=== PATIENT | female | born 2000 | race Caucasian/White ===

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

== ENCOUNTER → 2022-03-15 | Outpatient (CLI) | payer OTHER ==
--- NOTE | 2022-03-15 15:00 | US ---
EXAMINATION TYPE: Transabdominal DATE OF EXAM: 03/15/2022 2:34 PM COMPARISON: NONE CLINICAL HISTORY: Z36.89 ENCOUNTER FOR OTHER SPECIFIED SCR. Confirm dates EXAM PERFORMED: Transabdominal (TA) EXAM MEASUREMENTS: GESTATIONAL AGE / DATING Physician Established: not yet established Dates by LMP: (9 weeks/5 days) EDC: 10/13/22 Dates by First Scan: No previous this is first scan Dates by Current Scan for: (10 weeks/1 days) EDC: 10/10/22 MATERNAL ANATOMY Uterus: 8.8 x 8.5 x 8.5cm Right Ovary: 3.4 x 1.8 x 1.8cm Left Ovary: 2.1 x 1.6 x 1.6cm Post CDS / Adnexa: wnl Presence of free fluid: no Presence of corpus luteal cyst: yes, complex area right ovary = 1.6 x 1.5 x 1.5cm Presence of subchorionic bleed: no GESTATION / SURVEY CRL: 3.3cm (10 weeks/1 day) Yolk Sac (normal less than 6mm): 0.4cm Heart Rate: 167 bpm Rhythm: Normal IUP: Viable IUP Date of LMP: 01/06/22 Beta HcG (if available): Not available at this time IMPRESSION: Single live intrauterine gestation with estimated gestational age of 10 weeks 1 day with estimated du e date of 10/10/2022.
== END | disposition home or self-care (01) ==
LOC: RADUSWWP 14:17
PROVIDERS: ATTEND Obstetrics & Gynecology
DX: Z36.89 Encounter for other specified antenatal screening (principal); Z3A.10 10 weeks gestation of pregnancy
CPT/HCPCS: 76801

== ENCOUNTER 2022-10-08 06:00 | Inpatient (IN) | payer OTHER ==
--- NOTE | 2022-10-07 10:08 | P.HPOB ---
History of Present Illness H&P Date: 10/07/22 Chief Complaint: Induction of labor This is a 22 y.o. female, 2, para 0, with an estimated date of confinement of 10/13/2022, estimated gestational age of 39-2/7 weeks, who presents for induction of labor due to marginal cord insertion. She has been feeling irregular contractions and pressure. surveillance has been reassuring. Patient did have COVID in May 2022 and was given Paxlovid at that time. She was also started on baby aspirin at the time. labs: Hepatitis B surface antigen-neg RPR-NR Rubella-immune Blood type-A+ Antibody screen-neg HIV-NR Hemoglobin-14.3 Toxoplasma-neg Hepatits C antibody-neg [id number] GC/Chlamydia/Trich-neg 1 hr. GTT-108 GBS-neg OB Hx: . History of 1 termination. 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 Works at a [employer]. Review of Systems Constitutional: Denies chills, Denies fever Eyes: denies blurred vision, denies pain Ears, nose, mouth and throat: Denies headache, Denies sore throat Cardiovascular: Denies chest pain, Denies shortness of breath Gastrointestinal: Reports abdominal pain (irregular contractions) Genitourinary: Reports pelvic pain, Reports Musculoskeletal: Reports low back pain Integumentary: Denies pruritus, Denies rash Neurological: Denies numbness, Denies weakness Psychiatric: Denies anxiety, Denies depression Past Medical History Past Medical History: No Reported History History of Any Multi-Drug Resistant Organisms: None Reported Past Surgical History: No Surgical Hx Reported Additional Past Surgical History / Comment(s): root canal Past Psychological History: No Psychological Hx Reported Smoking Status: Current every day smoker Past Alcohol Use History: None Reported Past Drug Use History: Marijuana (History earlier in ) - Past Family History Father Family Medical History: Hypertension Brother(s) Additional Family Medical History / Comment(s): hearing impaired Medications and Allergies Home Medications Medication Instructions Recorded Confirmed Type Aspirin EC [Ecotrin Low Dose] 81 mg PO DAILY 10/07/22 10/07/22 History Vit No.179/Iron/Folic 1 each PO 10/07/22 History [ Tablet] Allergies Allergy/AdvReac Type Severity Reaction Status Date / Time No Known Allergies Allergy Verified 07/17/22 22:24 Exam Osteopathic Statement: *. No significant issues noted on an osteopathic structural exam other than those noted in the History and Physical/Consult. HEENT: within normal limits Heart: regular rate and rhythm Lungs: clear to auscultation bilaterally Abdomen: soft, non-tender, Cervix: 2.5 cm/70%/-2 heart tones: 140's by doppler Extremities: neg. Skylar's Assessment and Plan (1) 39 weeks gestation of Status: Acute Code(s): Z3A.39 - 39 WEEKS GESTATION OF SNOMED Code(s): 60922814 (2) Marginal insertion of umbilical cord affecting management of mother in third trimester Status: Acute Code(s): O43.193 - OTHER MALFORMATION OF PLACENTA, THIRD TRIMESTER SNOMED Code(s): 22798159 Plan: Proceed with oxytocin induction of labor. Expectant management. Epidural anesthesia if desired.
[2022-10-08] MEDS ORDERED: CARBOPROST TROMETHAMINE 250 MCG/ML 1 ML AMP IM PRN (06:12)
[2022-10-08] MEDS ORDERED: TRANEXAMIC ACID IN NACL,ISO-OS 1,000 MG in EMPTY BAG 1 BAG IV PRN (06:12)
[2022-10-08] MEDS ORDERED: OXYTOCIN 30 UNITS/500 ML NS 30 UNIT in SALINE 1 500ML.BAG IV SCH (06:12)
[2022-10-08] MEDS ORDERED: LIDOCAINE 0.5% (PF) 5 MG/ML (50 ML SDV) SQ PRN (06:12)
[2022-10-08] MEDS ORDERED: TERBUTALINE 1 MG/ML VIAL SQ PRN (06:12)
[2022-10-08] MEDS ORDERED: LIDOCAINE 1% (10MG/ML) FOR IV START INTRADERMA PRN (06:12)
[2022-10-08] MEDS ORDERED: miSOPROStoL 200 MCG TAB PO PRN (06:12)
[2022-10-08] MEDS ORDERED: OXYTOCIN 10 UNIT/ML 1 ML VIAL IM PRN (06:12)
[2022-10-08] MEDS ORDERED: METHYLERGONOVINE 0.2 MG/ML 1 ML AMP IM PRN (06:12)
[2022-10-08 06:20] VITALS: RESP 16
[2022-10-08] MEDS: LACTATED RINGERS 1,000 ML IV SCH ×3 (06:43→15:07)
[2022-10-08 06:53] LABS: Basophils % (A) 0 %; Eosinophils # (A) 0.2 k/uL (0-0.7); Eosinophils % (A) 2 %; HCT 36.5 % (34.0-46.0); HGB 12.2 gm/dL (11.4-16.0); Lymphocytes # (A) 1.8 k/uL (1.0-4.8); Lymphocytes % (A) 14 %; MCH 26.4 pg (25.0-35.0); MCHC 33.3 g/dL (31.0-37.0); MCV 79.3 fL (80.0-100.0); Mean Platelet Volume 8.7; Monocytes # (A) 0.7 k/uL (0-1.0); Monocytes % (A) 6 %; Neutrophils # (A) 10.1 k/uL (1.3-7.7); Neutrophils % (A) 77 %; Platelet Count 259 k/uL (150-450); RBC 4.61 m/uL (3.80-5.40); RDW 15.8 % (11.5-15.5); WBC 13.2 k/uL (4.0-11.0)
[2022-10-08 08:01] LABS: Amphetamine Screen,Urine Not Detected (NotDetected); Barbiturate Screen,Urine Not Detected (NotDetected); Benzodiazepines Screen,Urine Not Detected (NotDetected); Cocaine Screen,Urine Not Detected (NotDetected); Methadone Screen, Urine Not Detected (NotDetected); Opiate Screen,Urine Not Detected (NotDetected); Oxycodone Screen, Urine Not Detected (NotDetected); Phencyclidine Screen,Urine Not Detected (NotDetected); Tricyclic Antidepressant,Urine Not Detected (NotDetected); Urn Cannabinoid Scrn Not Detected (NotDetected)
[2022-10-08] MEDS ORDERED: SODIUM CHLORIDE 0.9% 100 ML BAG ONE (13:04)
[2022-10-08] MEDS ORDERED: ROPIVACAINE 5 MG/ML 20 ML AMPULE ONE (13:04)
[2022-10-08] MEDS ORDERED: fentaNYL (PF) 50 MCG/ML 5 ML AMP ONE (13:04)
[2022-10-08] MEDS ORDERED: ROPIVACAINE 225 MG, fentaNYL (PF). 450 MCG in SODIUM CHLORIDE 0.9% 171 ML EPIDURAL ONE (13:54)
--- NOTE | 2022-10-08 18:39 | P.PROBDLV ---
Vaginal Delivery Note - . Vaginal Delivery Note: The patient underwent oxytocin induction of labor with artificial rupture membranes with clear fluid noted. She did receive nitrous oxide for a short while and then did get an epidural. She progressed to complete dilation. She began pushing. Infant's head came to a crown. With one further push, the 's head delivered across the perineum followed by the anterior shoulder. Nose and mouth were bulb suctioned at the perineum. With one remaining push, the remainder the easily delivered and was placed on mother's abdomen. Once the cord finish pulsating, cord was clamped and cut and was taken to warmer for evaluation. A viable female was noted with scores of 9 at 1 minute and 9 at 5 minutes and infant weight of 8 lbs. 1 oz. Placenta delivered shortly thereafter, intact, with a three-vessel cord with a marginal cord insertion. Questionable circumvallate placenta was also noted. Uterus initially contracted fairly well after oxytocin was given and uterine massage was carried out. Inspection of the perineum revealed a first-degree perineal laceration and a right periurethral laceration. These areas were anesthetized with 1% lidocaine and then sutured with 3-0 Vicryl suture in a running locked fashion. Uterus did become boggy and several clots were removed. A gloved hand was placed within the uterine cavity and several pieces of decidua-like tissue were removed along with blood clot but no further tissue was obtained. Oxytocin was opened up and uterus did firm again. After removing clots several times, patient was given 1 dose of Methergine 0.2 mg IM. Uterus again did firm after removing clots. Estimated blood loss at this time is approximately 300 mL's. Both mother and are in stable condition.
[2022-10-08] MEDS ORDERED: diphenhydrAMINE 50 MG/ML 1 ML VIAL IVP PRN ×2 (18:46)
[2022-10-08] MEDS ORDERED: BENZOCAINE/MENTHOL SPRAY 1 GM/SPRAY AEROSOL TOPICAL PRN (18:46)
[2022-10-08] MEDS ORDERED: HYDROCORTISONE 2.5% RECTAL CREAM 30 GM TUBE RECTAL PRN (18:46)
[2022-10-08] MEDS ORDERED: SIMETHICONE 80 MG CHEWABLE PO PRN (18:46)
[2022-10-08] MEDS ORDERED: diphenhydrAMINE 50 MG CAP PO PRN (18:46)
[2022-10-08] MEDS ORDERED: ZOLPIDEM 5 MG TAB PO PRN (18:46)
[2022-10-08] MEDS ORDERED: LANOLIN CREAM 5 GM TUBE TOPICAL PRN (18:46)
[2022-10-08] MEDS ORDERED: diphenhydrAMINE 25 MG CAP PO PRN (18:46)
[2022-10-08] MEDS: SENNOSIDES-DOCUSATE SODIUM 1 EACH TAB PO SCH (19:18)
[2022-10-08] MEDS: IBUPROFEN 600 MG TAB PO PRN (19:18)
[2022-10-09 07:39] LABS: Basophils % (A) 0 %; Eosinophils # (A) 0.2 k/uL (0-0.7); Eosinophils % (A) 2 %; HCT 30.4 % (34.0-46.0); Lymphocytes # (A) 1.6 k/uL (1.0-4.8); Lymphocytes % (A) 19 %; MCH 26.5 pg (25.0-35.0); MCHC 32.8 g/dL (31.0-37.0); MCV 80.6 fL (80.0-100.0); Mean Platelet Volume 8.8; Monocytes # (A) 0.6 k/uL (0-1.0); Monocytes % (A) 7 %; Neutrophils % (A) 70 %; Platelet Count 216 k/uL (150-450); RBC 3.77 m/uL (3.80-5.40); RDW 15.8 % (11.5-15.5); WBC 8.5 k/uL (4.0-11.0)
--- NOTE | 2022-10-09 08:46 | P.DS ---
Providers Date of admission: 10/08/22 06:03 Expected date of discharge: 10/09/22 Attending physician: Bita Bo Primary care physician: Stated None - Discharge Diagnosis(es) (1) 39 weeks gestation of Current Visit: No Status: Acute (2) Marginal insertion of umbilical cord affecting management of mother in third trimester Current Visit: No Status: Acute Hospital Course: This is a 22-year-old female 2 para 0 at 39-2/7 weeks who presented for induction of labor. She underwent oxytocin induction of labor and delivered vaginally a viable female on 10/08/2022 with scores of 9 at 1 minute and 9 at 5 minutes and infant weight of 8 lbs. 1 oz. Her course has been uncomplicated. Lochia has been decreasing. Her pain was well controlled with ibuprofen and Tylenol. She is breast-feeding. Vital signs are stable. Abdomen is soft with fundus firm and nontender. Extremities show negative Homans. Impression is status post vaginal delivery day #1. Plan is to discharge home today. Routine instructions are given. Rohan rocha will be given a prescription for ibuprofen. She is advised to follow up in the office in 6 weeks for check. She is to call the office if she has any further questions or concerns prior to her appointment. She does state that she has a breast pump at home. Procedures: Oxytocin induction of labor Spontaneous vaginal delivery of a viable female infant on 10/08/2022 Patient Condition at Discharge: Stable Plan - Discharge Summary New Discharge Prescriptions: New Ibuprofen [Motrin] 600 mg PO Q6HR PRN #60 tab PRN Reason: Mild Pain (Scale 1 To 3) Continue Vit No.179/Iron/Folic [ Tablet] 1 each PO Discontinued Aspirin EC [Ecotrin Low Dose] 81 mg PO DAILY Discharge Medication List Vit No.179/Iron/Folic [ Tablet] 1 each PO 10/07/22 [History] Ibuprofen [Motrin] 600 mg PO Q6HR PRN #60 tab 10/09/22 [Rx] Follow up Appointment(s)/Referral(s): Bita Bo DO [Doctor of Osteopathic Medicine] - 6 Weeks Activity/Diet/Wound Care/Special Instructions: Instructions 1. Do not begin any exercise program for 3 weeks. 2. Do not resume sexual relations for 3 weeks or longer if uncomfortable. 3. You may take tub baths or showers at any time. 4. You may use tampons if desired after 3 weeks. 5. Keep the area of episiotomy (stitches) clean and dry. 6. If you are not nursing, wear a good fitting, supportive bra during the day and limit fluid intake for at least 1 week to prevent breast engorgement. 7. Call the office, [phone], within the next week to make appointment for your 6 week checkup if it has not already been made. 8. Report any of the following occurrences to the doctor promptly: a. Heavy, excessive bleeding b. Chills, fever c. Burning or frequency of urination d. Pain or redness and breasts if nursing e. Increasing pain or swelling in episiotomy (stitches). In addition to the above instructions, the following additional should be followed: 1. No heavy lifting or straining (exercising) until after 6 week checkup. 2. Keep abdominal incision clean and dry: You may wear a dressing if more comfortable. 3. Make office appointment for 10 days after going home or as instructed by her doctor. Discharge Disposition: HOME SELF-CARE
[2022-10-09] MEDS: IBUPROFEN 600 MG TAB PO PRN (08:51)
[2022-10-09] MEDS: SENNOSIDES-DOCUSATE SODIUM 1 EACH TAB PO SCH (08:51)
[2022-10-09 15:28] VITALS: BP 108/62; PULSE 99; TEMP 98.1
== END 2022-10-09 19:16 | disposition home or self-care (01) | DRG 560 ==
LOC: 4FBP 06:03
PROVIDERS: ADMIT Obstetrics & Gynecology; ATTEND Obstetrics & Gynecology
PROC: 0HQ9XZZ Repair Perineum Skin, External Approach (ICD-10-PCS; principal; 2022-10-08)
PROC: 10E0XZZ Delivery of Products of Conception, External Approach (ICD-10-PCS; principal; 2022-10-08)
PROC: 10907ZC Drainage of Amniotic Fluid, Therapeutic from Products of Conception, Via Natural or Artificial Opening (ICD-10-PCS; 2022-10-08)
PROC: 3E033VJ Introduction of Other Hormone into Peripheral Vein, Percutaneous Approach (ICD-10-PCS; 2022-10-08)
DX: O43.193 Other malformation of placenta, third trimester (principal); F17.200 Nicotine dependence, unspecified, uncomplicated; O70.0 First degree perineal laceration during delivery; O71.82 Other specified trauma to perineum and vulva; O99.334 Smoking (tobacco) complicating childbirth; Z37.0 Single live birth; Z3A.39 39 weeks gestation of pregnancy; Z79.82 Long term (current) use of aspirin; Z86.16 Personal history of COVID-19
CPT/HCPCS: 80306; 85025; 86850; 86900; 86901

== ENCOUNTER 2023-12-29 12:04 | Emergency (ER) | payer OTHER ==
[2023-12-29 12:17] VITALS: RESP 16
--- NOTE | 2023-12-29 13:05 | XR ---
EXAMINATION TYPE: XR hand complete RT DATE OF EXAM: 12/29/2023 12:51 PM CLINICAL INDICATION:Female, 23 years old with history of dog bite; [facility] COMPARISON: None TECHNIQUE: XR hand complete RT Frontal, lateral and oblique views were obtained. FINDINGS: Normal alignment of the visualized joints. No acute osseous pathology is identified. Soft tissue injury to the dorsal hand. No significant degeneration, No radiopaque foreign bodies. IMPRESSION: 1. No acute osseous pathology. 2. Soft tissue injury to the dorsal hand without radiopaque foreign bodies.
--- NOTE | 2023-12-29 13:07 | ED ---
Animal Bite HPI - General Chief Complaint: Animal Bite Stated Complaint: R hand dog bite Time Seen by Provider: 12/29/23 12:18 Source: patient, RN notes reviewed Mode of arrival: ambulatory Limitations: no limitations - History of Present Illness Initial Comments: 23-year-old female presents emergency department chief complaint of right hand dog bite. Patient states this was her dog. Patient states s she is unsure when her last tetanus was and states that the dog was up-to-date vaccines. Patient has right hand pain, multiple puncture wounds states it sore but able to move all digits no paresthesias. - Related Data Home Medications Medication Instructions Recorded Confirmed Vit No.179/Iron/Folic 1 each PO 10/07/22 [ Tablet] Previous Rx's Medication Instructions Recorded Ibuprofen [Motrin] 600 mg PO Q6HR PRN #60 tab 10/09/22 Amoxic-Pot Clav 875-125Mg 1 tab PO Q12HR #20 tab 12/29/23 [Augmentin 875-125] Ibuprofen [Motrin] 600 mg PO Q8HR PRN #20 tab 12/29/23 Allergies Allergy/AdvReac Type Severity Reaction Status Date / Time No Known Allergies Allergy Verified 12/29/23 12:17 Review of Systems ROS Statement: Those systems with pertinent positive or pertinent negative responses have been documented in the HPI. ROS Other: All systems not noted in ROS Statement are negative. Past Medical History Past Medical History: No Reported History History of Any Multi-Drug Resistant Organisms: None Reported Past Surgical History: No Surgical Hx Reported Additional Past Surgical History / Comment(s): root canal Past Psychological History: No Psychological Hx Reported Smoking Status: Vaper Past Alcohol Use History: Occasional Past Drug Use History: Marijuana - Past Family History Father Family Medical History: Hypertension Brother(s) Additional Family Medical History / Comment(s): hearing impaired General Exam Limitations: no limitations General appearance: alert, in no apparent distress Head exam: Present: atraumatic, normocephalic, normal inspection Neck exam: Present: normal inspection. Absent: tenderness, meningismus, lymphadenopathy Respiratory exam: Present: normal lung sounds bilaterally. Absent: respiratory distress, wheezes, rales, rhonchi, stridor Cardiovascular Exam: Present: regular rate, normal rhythm, normal heart sounds. 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 Cap refill less than 2 seconds) Course Vital Signs 12/29/23 12:15 Temperature 97.6 F Pulse Rate 81 Respiratory 16 Rate Blood Pressure 120/76 O2 Sat by Pulse 97 Oximetry Medical Decision Making - Medical Decision Making Was pt. sent in by a medical professional or institution (MONICA Ruff, UNIT MANAGER, urgent care, hospital, or residential...) When possible be specific @ -No Did you speak to anyone other than the patient for history (EMS, parent, family, police, friend...)? What history was obtained from this source @ -No Did you review nursing and triage notes (agree or disagree)? Why? @ -I reviewed and agree with nursing and triage notes Were old charts reviewed (outside hosp., previous admission, EMS record, old EKG, old radiological studies, urgent care reports/EKG's, residential records)? Report findings @ -No old charts were reviewed Differential Diagnosis (chest pain, altered mental status, abdominal pain women, abdominal pain men, vaginal bleeding, weakness, fever, dyspnea, syncope, headache, dizziness, GI bleed, back pain, seizure, CVA, palpatations, mental health, musculoskeletal)? @ -Dog bite, puncture wounds EKG interpreted by me (3pts min.). @ -None X-rays interpreted by me (1pt min.). @ -X-ray right hand no acute foreign body, no osseous abnormality CT interpreted by me (1pt min.). @ -None done U/S interpreted by me (1pt. min.). @ -None done What testing was considered but not performed or refused? (CT, X-rays, U/S, labs)? Why? @ -None What meds were considered but not given or refused? Why? @ -None Did you discuss the management of the patient with other professionals (professionals i.e. MONICA Ruff, UNIT MANAGER, lab, RT, psych nurse, social scientist, almond roaster, teacher, community relations officer, social work case manager)? Give summary @ -No Was smoking cessation discussed for >3mins.? @ -No Was critical care preformed (if so, how long)? @ -No Were there social determinants of health that impacted care today? How? (Homelessness, low income, unemployed, alcoholism, drug addiction, transport ation, low edu. Level, literacy, decrease access to med. care, care home, rehab)? @ -No Was there de-escalation of care discussed even if they declined (Discuss DNR or withdrawal of care, Hospice)? DNR status @ -No What co-morbidities impacted this encounter? (DM, HTN, Smoking, COPD, CAD, Cancer, CVA, ARF, Chemo, Hep., AIDS, mental health diagnosis, sleep apnea, morbid obesity)? @ -None Was patient admitted / discharged? Hospital course, mention meds given and route, prescriptions, significant lab abnormalities, going to OR and other pertinent info. @ -Discharge patient symptoms updated. Patient does not require rabies vaccine. Patient was given Augmentin, x-rays are negative. Patient is discharged in stable condition patient's hand was thoroughly washed, irrigated and bacitracin applied Undiagnosed new problem with uncertain prognosis? @ -No Drug Therapy requiring intensive monitoring for toxicity (Heparin, Nitro, Insulin, Cardizem)? @ -No Were any procedures done? @ -No Diagnosis/symptom? @ -Dog bite multiple lacerations Acute, or Chronic, or Acute on Chronic? @ -Acute Uncomplicated (without systemic symptoms) or Complicated (systemic symptoms)? @ -Uncomplicated Side effects of treatment? @ -No Exacerbation, Progression, or Severe Exacerbation? @ -No Poses a threat to life or bodily function? How? (Chest pain, [place], [place], pneumonia, PE, COPD, DKA, ARF, appy, cholecystitis, CVA, Diverticulitis, Homicidal, Suicidal, threat to staff... and all critical care pts) @ -No Disposition Clinical Impression: Dog bite Disposition: HOME SELF-CARE Condition: Stable Instructions (If sedation given, give patient instructions): Animal Bite (ED) Additional Instructions: Please return to the Emergency Department if symptoms worsen or any other concerns. Prescriptions: Amoxic-Pot Clav 875-125Mg [Augmentin 875-125] 1 tab PO Q12HR #20 tab Ibuprofen [Motrin] 600 mg PO Q8HR PRN #20 tab PRN Reason: Pain Is patient prescribed a controlled substance at d/c from ED?: No Referrals: None,Stated [Primary Care Provider] - 1-2 days Time of Disposition: 13:07
[2023-12-29] MEDS: AMOXIC-POT CLAV 875-125MG 1 EACH TAB PO STA (13:27)
[2023-12-29] MEDS: DIPH,PERTUS(ACELL)TETVAC-LF 0.5 ML VIAL IM ONE (13:33)
[2023-12-29] MEDS: BACITRACIN OINT 1 EACH PACKET TOPICAL ONE (13:33)
[2023-12-29 14:23] VITALS: BP 102/72; PULSE 70; TEMP 97.7
== END 2023-12-29 14:29 | disposition home or self-care (01) ==
LOC: EC 12:04
DX: S61.451A Open bite of right hand, initial encounter (principal); F17.290 Nicotine dependence, other tobacco product, uncomplicated; Z23 Encounter for immunization; W54.0XXA Bitten by dog, initial encounter
CPT/HCPCS: 90471; 90715; 99283